=== PATIENT | male | born 1960 | race Two or more races ===

== ENCOUNTER → 2017-02-02 | Outpatient (CLI) | payer MEDICARE, MEDICAID ==
[~2017-02-02] MED LIST: ACYC-114 PO; ALBU8.5H3 INH; ASPI-496 PO; AZIT-14 PO; CALC200T3 PO; CHOL20002 PO; CYCL50CA3 PO; DEXA4TAB PO; ENOX80SY5 SQ; FOLI-17 PO; GABA300C10 PO; HYDR-3138 PO; HYDR20TA22 PO; LENA25CA PO; LEVO750T26 PO; PRED20TA PO; WARF5TAB7 PO
[2017-02-04 12:07] LABS: FREE KAPPA LT CHAINS SERUM 34.12 mg/L (3.30-19.40); FREE LAMBDA LT CHAINS SERUM 31.42 mg/L (5.71-26.30); KAPPA/LAMBDA RATIO SERUM 1.09 (0.26-1.65)
== END | disposition home or self-care (01) ==
LOC: LAB 10:41
PROVIDERS: ATTEND Specialist
DX: C90.00 Multiple myeloma not having achieved remission (principal)
CPT/HCPCS: 36415; 82784; 83883

== ENCOUNTER → 2017-02-17 | Outpatient (CLI) | payer MEDICARE, MEDICAID | END | disposition home or self-care (01) | LOC: CFH 10:57 | PROVIDERS: ATTEND Specialist | DX: Z13.820 Encounter for screening for osteoporosis (principal); C90.00 Multiple myeloma not having achieved remission; M48.52XA Collapsed vertebra, not elsewhere classified, cervical region, initial encounter for fracture; M85.89 Other specified disorders of bone density and structure, multiple sites | CPT/HCPCS: 72050; 72072; 72110; 77080 ==

== ENCOUNTER → 2017-06-12 | Outpatient (CLI) | payer MEDICARE, MEDICAID ==
[~2017-06-12] MED LIST changes: -AZIT-14 PO; +AZIT250T89 PO
== END | disposition home or self-care (01) ==
LOC: RAD 12:41
PROVIDERS: ATTEND Specialist
DX: M48.54XA Collapsed vertebra, not elsewhere classified, thoracic region, initial encounter for fracture (principal)
CPT/HCPCS: 72157

== ENCOUNTER → 2017-08-06 | Outpatient (CLI) | payer MEDICARE, MEDICAID ==
[~2017-08-06] MED LIST changes: -ALBU8.5H3 INH; +ALBU8.5H8 INH; -HYDR-3138 PO; +HYDR-3237 PO
[2017-08-06 12:42] LABS: ASPARTATE AMINO TRANSFERASE 15 U/L (15-37); BLOOD UREA NITROGEN 12 mg/dL (7-18)
[2017-08-07 11:06] LABS: FREE KAPPA LT CHAINS SERUM 22.3 mg/L (3.3-19.4); FREE LAMBDA LT CHAINS SERUM 16.9 mg/L (5.7-26.3); KAPPA/LAMBDA RATIO SERUM 1.32 (0.26-1.65)
== END | disposition home or self-care (01) ==
LOC: LAB 10:19
PROVIDERS: ATTEND Specialist
DX: C90.00 Multiple myeloma not having achieved remission (principal)
CPT/HCPCS: 36415; 80053; 82232; 82784; 83883

== ENCOUNTER 2018-01-06 06:14 | Day surgery (SDC) | payer MEDICARE, MEDICAID ==
[~2018-01-06] VITALS: Ht 152.4 cm; Wt 68.1 kg
[2018-01-06 06:59] VITALS: BP 107/72
[2018-01-06] MEDS ORDERED: SODIUM CHLORIDE 0.9% 1,000 ML IV SCH (07:01)
[2018-01-06 07:20] LABS: MEAN CORPUSCULAR HEMOGLOBIN 33.7 pg (27.5-34.5); MEAN CORPUSCULAR HGB CONC 34.8 g/dL (33.2-36.2); MEAN CORPUSCULAR VOLUME 96.8 fL (81-97); RED BLOOD COUNT 3.04 x10^6/uL (4.38-5.82); RED CELL DISTRIBUTION WIDTH 17.8 % (9.4-14.8)
[2018-01-06 07:21] LABS: MD YES
[2018-01-06 07:28] LABS: ANISOCYTOSIS 1+; BAND#(MANUAL) 0.09 x10^3/uL; BANDS%(MANUAL) 1 % (0-7); BASOS#(MANUAL) 0.09 x10^3/uL (0-0.1); BASOS% (MANUAL) 1 % (0-1); EOS#(MANUAL) 0.18 x10^3/uL (0.0-0.4); EOS% (MANUAL) 2 % (1-7); LYMPH#(MANUAL) 4.01 x10^3/uL (1-3.4); LYMPHS% (MANUAL) 45 % (22-44); MONOS#(MANUAL) 1.07 x10^3/uL (0.3-2.7); MONOS% (MANUAL) 12 % (2-9); REACTIVE LYMPHS # (MANUAL) 0.18 x10^3/uL (0-0); REACTIVE LYMPHS % (MANUAL) 2 % (0-0); SEG#(MANUAL) 3.29 x10^3/uL (1.8-6.8); SEGS% (MANUAL) 37 % (42-75)
[2018-01-06 07:29] LABS: <PLATELET ESTIMATE> DECREASED; <PLT MORPHOLOGY> NORMAL PLT MORPH
[2018-01-06 07:32] LABS: MEAN PLATELET VOLUME 9.5 fL (7.4-10.4); PLATELET COUNT 18 x10^3/uL (130-400)
[2018-01-06] MEDS ORDERED: LIDOCAINE 1%, 20ML ONE (08:10)
[2018-01-06] MEDS ORDERED: MIDAZOLAM 1 MG/ML, 2ML ONE (08:13)
[2018-01-06] MEDS ORDERED: FENTANYL PF 100 MCG/2ML ONE (08:13)
[2018-01-06] MEDS ORDERED: NALOXONE 1 MG/ML, 2ML ONE (08:13)
[2018-01-06] MEDS ORDERED: FLUMAZENIL 0.1 MG/1 ML, 5ML ONE (08:13)
== END 2018-01-06 11:10 ==
LOC: OUT 06:14
PROVIDERS: ATTEND Specialist
DX: C90.00 Multiple myeloma not having achieved remission (principal); Z98.890 Other specified postprocedural states
CPT/HCPCS: 36415; 38222; 77012; 85025; 85060; 85097; 88237; 88264; 88280; 88305; 88311; 88313; 99156; 99157; J2250; J3010; J3490; J7030; J2310